=== PATIENT | female | born 1960 | race Caucasian/White ===

== ENCOUNTER 2022-12-24 13:37 | Outpatient (CLI) | payer BC | END 2022-12-24 13:38 | disposition critical access hospital (66) | LOC: EMS 13:37 | DX: S69.91XA Unspecified injury of right wrist, hand and finger(s), initial encounter (principal); W01.0XXA Fall on same level from slipping, tripping and stumbling without subsequent striking against object, initial encounter; Y93.K1 Activity, walking an animal; Y92.481 Parking lot as the place of occurrence of the external cause | CPT/HCPCS: A0425; A0427 ==

== ENCOUNTER 2022-12-24 13:54 | Emergency (ER) | payer BC ==
--- NOTE | 2022-12-24 14:00 | ED Physician Documentation ---
PD HPI HEADACHE - Stated complaint Stated Complaint: GLF - History obtained from History obtained from: Patient, EMS - Additional information Additional information: Otherwise healthy 62-year-old woman who is up-to-date on tetanus was walking her dog and tripped over the dog and fell face first and right wrist first onto asphalt. No loss of consciousness. Mild headache. The wrist hurts a lot though. No other injuries. Received 150 mcg of fentanyl on the way here with good improvement in her pain. PD PAST MEDICAL HISTORY - Present Medications Home Medications: Ambulatory Orders Medication Instructions Recorded Confirmed HYDROcod/ACETAM 5/325 [Ottertail 5/325] 1 - 2 tab PO Q6H PRN #15 tablet 12/24/22 - Allergies Allergies/Adverse Reactions: Allergies Allergy/AdvReac Type Severity Reaction Status Date / Time No Known Drug Allergies Allergy Verified 12/24/22 14:45 PD ED PE NORMAL - Vitals Vital signs reviewed: Yes - General General: Alert and oriented X 3, No acute distress - HEENT HEENT: PERRL, EOMI, Other (There is an abrasion with contusion/ecchymosis to the right lateral supraorbital area) - Neck Neck: No bony TTP - Cardiac Cardiac: RRR, No murmur - Respiratory Respiratory: No respiratory distress, Clear bilaterally - Back Back: No CVA TTP, No spinal TTP - Derm Derm: Normal color, Warm and dry - Extremities Extremities: Other (Deformity of the right wrist consistent with a Colles' fracture with normal neurovascular function distally) - Neuro Neuro: Alert and oriented X 3, Normal speech Results - Vitals Vitals: Vital Signs - 24 hr 12/24/22 12/24/22 12/24/22 14:06 15:40 15:55 Temperature 36.5 C Heart Rate 73 73 66 Respiratory 18 11 L 18 Rate Blood Pressure 149/117 H 128/75 128/68 O2 Saturation 98 96 99 12/24/22 16:01 Temperature Heart Rate 88 Respiratory 18 Rate Blood Pressure O2 Saturation Oxygen O2 Source Room air - Rads (name of study) 2 view wrist x-ray demonstrated an impacted dorsally angulated distal radius fracture Relevant Findings:: Final report received, EMP independent interpretation of test CT of the head showing parafalcine calcification Relevant Findings:: Final report received, EMP independent interpretation of test Procedures - Splint (location) - Minor RUE Splint applied by: Physician, Tech Type of splint: Fiberglass, Long arm, Sugar tong Other: Good alignment, Sling provided - Reduction Body part reduced: Right, Wrist Fracture or dislocation: Fracture dislocation Reduction aftercare: Alignment improved, Splint applied - Procedural sedation Sedation prep: Informed consent, Time out completed, PE performed, ASA 1 - healthy Sedation Medications: propofol (80 then 40mg IVP) Mallampati classification: I Patient status during sedation: Responds to tactile Sedation recovery: Recovered uneventfully, Slow recovery Time in sedation (Minutes): 12 PD Medical Decision Making - ED course ED course: 62-year-old woman with ground-level fall with head injury, also clear wrist frac ture. She was sedated and reduced and splinted. She tolerated this well. Incidental finding on head CT was discussed with patient and the need for follow-up discussed and a copy of the CT read was given to them. Departure - Departure Disposition: 01 Home, Self Care Clinical Impression: Wrist fracture, right, Brain mass, Head injury Condition: Good Record reviewed to determine appropriate education?: Yes Instructions: ED Fx Colles Wrist Redu Requ Prescriptions: HYDROcod/ACETAM 5/325 [Ottertail 5/325] 1 - 2 tab PO Q6H PRN #15 tablet PRN Reason: Pain Comments: I sent your prescription electronically to [facility] in [place]. As discussed, you need to follow-up with an orthopedist within about a week or so, start calling on Sunday after the holiday for an appointment. Keep the arm elevated, you can ice it and the bruise on your face. Do not remove the splint or get it wet. Also as discussed, you have a calcification in your brain, almost certainly benign. But you should talk to your primary care physician about an MRI in the next month or 2. I am prescribing a short course of narcotic pain medication for you. These are potentially dangerous and addictive medications that should be used carefully. These medications may constipate you. Take an umih-qbz-nenbrpy stool softener (docusate) twice daily with plenty of water while taking these medications. If you go 24 hours without a bowel movement, take xefa-amc-eeymsul miralax, per package instructions. Do not drink or drive while taking these medications. If you received narcotic or sedating medications while in the emergency department, do not drive for 24 hours. Store this medication in a safe, secure place and out of reach of children. It is a violation of federal law to give or sell this medication to another person or to use in a manner other than prescribed. The ED will not refill narcotic prescriptions, including prescriptions lost or stolen. To dispose of unwanted medications: 1. [facility] at [address] in [place] has a medication drop box. They accept prescription medications (in pill form) Sunday through Sunday 9:00 a.m. to 5:00 p.m. 2. The [facility] [employer] accepts prescription medications (in pill form only) for disposal year round. Call for more information. 3. Contact the [facility] for the next [facility] sponsored prescription drug collection event. , [phone], or [phone]; Note that many narcotic pain relievers also contain Tylenol/acetaminophen. Please ensure that your total dose of acetaminophen from all sources does not exceed 3 g (3000 mg) per day.
[2022-12-24] MEDS ORDERED: KETOROLAC 15 MG/ML VIAL IVP STA (14:22)
[2022-12-24] MEDS ORDERED: HYDROmorphone 1 MG/ML CARPUJECT IVP STA (14:22)
[2022-12-24] MEDS ORDERED: PROPOFOL 200 MG/20 ML VIAL IVP STA ×2 (14:30→15:47)
--- NOTE | 2022-12-24 14:37 | XRAY Report ---
PROCEDURE: Wrist 2 View RT INDICATIONS: wrist inj TECHNIQUE: 2 views of the wrist were acquired. COMPARISON: None. FINDINGS: Bones: There is an impacted and dorsally angulated fracture of the proximal radius. There is slight comminution and probably extension of the fracture plane to the articular surface. An impacted ulnar styloid fracture is also noted. Radiocarpal alignment appears grossly maintained. Soft tissues: No suspicious soft tissue calcifications or masses. IMPRESSION: 1. Impacted, angulated, probably intra-articular distal radius fracture. 2. Impaction styloid fracture. Reviewed by: Adelina Jimenez MD on 12/24/2022 1:36 PM [facility] Approved by: Adelina Jimenez MD on 12/24/2022 1:36 PM [facility] Station ID: [id number]
[2022-12-24] MEDS ORDERED: ONDANSETRON 4 MG/2 ML VIAL IVP STA (14:53)
--- NOTE | 2022-12-24 15:38 | CT Report ---
PROCEDURE: HEAD WO INDICATIONS: head inj TECHNIQUE: Noncontrast 4.5 mm thick angled axial sections acquired from the foramen magnum to the vertex. For r adiation dose reduction, the following was used: automated exposure control, adjustment of mA and/or kV according to patient size. COMPARISON: None. FINDINGS: Image quality: Excellent. CSF spaces: Basal cisterns are patent. No extra-axial fluid collections. Ventricles are normal in size and shape. Brain: No midline shift. 0.9 x 0.7 cm ovoid hyperdensity, probably calcification along the falx. No other intracranial masses or hemorrhage. Galloway-white matter interface is normal. Skull and face: There is a subcutaneous soft tissue contusion in the right lateral periorbital regio n with a maximal thickness of 1.0 cm. There is a small focus of subcutaneous gas suggesting laceratio n is present. No radiodense debris seen. No underlying fracture. Sinuses: Visualized sinuses and mastoids are clear. IMPRESSION: 1. There is an unusual parafalcine hyperdensity, more prominent than most calcifications, but most li carl benign calcification. If there is continued suspicion for intracranial injury, follow-up exam in 4 hours is recommended to assess for change. 2. No other evidence of acute intracranial injury. 3. Right periorbital subcutaneous contusion without underlying fracture. Reviewed by: Adelina Jimenez MD on 12/24/2022 2:37 PM [facility] Approved by: Adelina Jimenez MD on 12/24/2022 2:37 PM [facility] Station ID: [id number]
--- NOTE | 2022-12-24 15:55 | CT Report ---
PROCEDURE: CERVICAL SPINE WO INDICATIONS: head inj TECHNIQUE: Noncontrast 3 mm thick sections acquired from the skull base to the T4 level. Sagittal and coronal r eformats were then constructed. For radiation dose reduction, the following was used: automated exp osure control, adjustment of mA and/or kV according to patient size. COMPARISON: None. FINDINGS: Image quality: Excellent. Bones: The craniocervical junction is intact. Mild degenerative changes at the atlantodental interval . Lateral masses of C1 are normally aligned on C2. No odontoid fracture. There is straightening of the normal cervical lordosis. Trace anterolisthesis C4 on 5 with mild facet arthropathy present. There are severe degenerative changes involving discs and endplates from C5 thr ough T1. No discrete vertebral body fracture is not identified. Degenerative disc osteophytes at the C5-6 leve l causes moderate central canal narrowing and foraminal narrowing. Mainly left-sided facet arthropath y at multiple levels probably causes left-sided foraminal narrowing. There is no pathologic subluxati on or perched facet.. Visualized superior ribs are intact. Soft tissues: Prevertebral soft tissues are normal in thickness. No paravertebral hematomas. No ap ical pneumothoraces. IMPRESSION: 1. No CT evidence of acute cervical spine trauma. 2. Severe disc and endplate degenerative changes in the cervical spine, predominantly C5-6. Reviewed by: Adelina Jimenez MD on 12/24/2022 2:53 PM [facility] Approved by: Adelina Jimenez MD on 12/24/2022 2:53 PM [facility] Station ID: [id number]
[2022-12-24] MEDS ORDERED: HYDROcod/ACET 5/325 Prepack 4 PO STA (16:20)
[2022-12-24 17:04] VITALS: BP 132/85
--- NOTE | 2022-12-24 17:24 | XRAY Report ---
PROCEDURE: Forearm RT INDICATIONS: Postreduction TECHNIQUE: 2 views of the forearm were acquired. COMPARISON: Films performed earlier the same day FINDINGS: Bones: Splint material is now in place. There is improved alignment of the previous distal radius fra cture. Displaced ulnar styloid fracture is again seen. Soft tissues: No suspicious soft tissue calcifications or masses. IMPRESSION: Improved alignment postreduction of distal radius fracture. Reviewed by: Adelina Jimenez MD on 12/24/2022 4:23 PM [facility] Approved by: Adelina Jimenez MD on 12/24/2022 4:23 PM [facility] Station ID: [id number]
== END 2022-12-24 17:01 | disposition home or self-care (01) ==
LOC: ED 13:54
DX: S52.501A Unspecified fracture of the lower end of right radius, initial encounter for closed fracture (principal); W01.10XA Fall on same level from slipping, tripping and stumbling with subsequent striking against unspecified object, initial encounter; S09.90XA Unspecified injury of head, initial encounter; Y93.K1 Activity, walking an animal; R22.0 Localized swelling, mass and lump, head
CPT/HCPCS: 25605; 70450; 72125; 73090; 73100; 96374; 96375; 99152; 99284; 99285; J1170; 94770